=== PATIENT | female | born 1960 | race Caucasian/White ===

== ENCOUNTER 2018-11-21 15:59 | Inpatient (IN) | payer MEDICARE, MEDICAID ==
[~2018-11-21] VITALS: Ht 154.9 cm; Wt 51.2 kg
[~2018-11-21 15:59] MED LIST: ACTICIN 5% CREA60 G1 TOP; ALBUTEROL INHAL17 GM IH; ALBUTEROL2.5 MG/0.1 INH; ALLOPURINOL 10100 M2 PO; AMBIEN 10 MG TA10 MG PO; AMITRIPTYLINE H75 M1 PO; ASPIR 8181 MG PO; ASPIRIN325; BACTRIM DS TAB1 EACH PO; BETASERON; BUSPAR; BUSPIRONE HCL10 MG PO; BUSPIRONE HCL15 MG PO; CELEBREX; CENTANY30 GM TOP; CLONAZEPAM; CYMBALTA30 MG PO; DICLOFENAC SODI75 MG PO; EXCEDRIN CAPLE1 EACH PO; FUTURO RESTORI1 EACH MC; GABAPENTIN 100100 MG PO; GABAPENTIN300 MG PO; IBUPROFEN 600600 M1 PO; INTERFERON; KEFLEX500 MG PO; KLOR-CON 10 ER10 MEQ PO; LASIX 40 MG TAB40 M2 PO; LISINOPRIL10 MG PO; LITHIUM CARBON150 MG; LITHIUM CARBON300 M3 PO; LUNESTA; LUNESTA1 MG PO; MEDROLDOSEPACK PO; MIRAPEX; NEURONTIN 300300 M1 PO; NEURONTIN 300M300 M2 PO; NICOTINE TRANSD21 M1 TRANSDERM; NORCO 5-325 TA1 EACH PO; NORCO 7.5-3251 EACH PO; PREDNISONE 10 M10 M1 PO; PREDNISONE 20 M20 MG PO; PREDNISONE50 MG PO; PROAIR HFA8.5 GM INH; SINGULAIR 10 MG10 M1 PO; SYNTHROID75 MCG PO; ZANTAC 150MG T150 M1 PO; ZANTAC 150MG T150 MG PO; ZOFRAN ODT4 MG PO; ZOLOFT25 MG PO; ZYRTEC 10 MG TA10 MG PO; [UNRECOGNIZED DRUG - REMARK]
[2018-11-21 16:03] VITALS: BP 101/70; BP 163/116
[2018-11-21 16:47] LABS: HEMATOCRIT 29.1 % (37.0-47.0); HEMOGLOBIN 9.9 gm/dL (12.0-15.0); MCH 35.5 pg (26.0-34.0); MCHC 34.2 g/dL (28.0-37.0); MCV 103.8 fL (80.0-100.0); MPV 7.5 fl. (7.2-11.1); NUCLEATED RBCS 0 /100WBC; PLATELET COUNT* 173 thou/uL (150-400); RDW-CV 15.3 % (10.5-14.5); WBC 3.3 thou/uL (4.0-11.0)
[2018-11-21 16:55] LABS: CALCIUM 7.4 mg/dL (8.5-10.1); CREATININE 0.7 mg/dL (0.6-1.3); POTASSIUM 3.3 mmol/L (3.5-5.1)
[2018-11-21 16:57] LABS: APTT 53.2 Seconds (25.0-31.3); INR 1.6; PROTIME 16.6 Seconds (9.20-11.50)
[2018-11-21 17:06] LABS: ALBUMIN 1.1 g/dL (3.4-5.0); TOTAL BILIRUBIN 0.5 mg/dL (<0.1-1.0); TOTAL PROTEIN 4.5 g/dL (6.4-8.2)
[2018-11-21 17:25] LABS: ABSOLUTE LYMPHOCYTES 0.1 thou/uL (0.8-5.3); ABSOLUTE MONOCYTES 0.1 thou/uL (0.0-1.2); ABSOLUTE NEUTROPHILS 3.1 thou/uL (1.6-8.1); PLATELET ESTIMATE ADEQUATE
[2018-11-21 20:25] VITALS: BP 98/67
[2018-11-21 22:30] VITALS: BP 104/78
--- NOTE | 2018-11-22 06:30 | NUR ---
ASSESSMENT: PT ARRIVED TO THE UNIT AT 2034. PT IS ALERT AND ORIENT TIMES THREE, NOT ABLE TO BEAR WT AND IS THEREFORE BEDRIDDEN FOR NOW. PT'S COCCYX AND SACRAL HAS DECUB WOUNDS R/T RADIATION TX THAT WAS LAST DONE IN DECEMBER 2017. PICS ARE IN THE CHART OF HE BUTTOCK WOUNDS AND LEFT HEEL ULCER THAT WAS ODOROUS. PT STATE THAT SHE LIVES ALONE BUT HAS A DAUGHTER IN LAW WHO COMES TO HELP HER AND IS HER HH NURSE. PT IS NOT ABLE TO LIFT ANGELIQUE LE, BUT IS ABLE TO USE HER UE WELL ENOUGH TO FEED HERSELF AND TO REACH FOR THINGS ON HER CART. PT IS ABLE TO USE THE CALL LIGHT APPROPRIATELY. DR. KRISHNAMURTHY GAVE ORDERS TO CONSULT Jenny RANDALL FOR BLOOD CULTURE RESULTS. PT SLEPT WELL DURING THE NIGHT. LEFT CHEST PORTACATH INTACT AND PATENT. WILL CONTINUE TO MONITOR.
[2018-11-22 08:30] VITALS: BP 103/63
--- NOTE | 2018-11-22 10:41 | NUR ---
INITIAL ASSESSMENT: Pt evaluated for d/c planning needs. Reviewed chart and spoke with nurse and pt. Pt is alert and oriented. Pt lives alone in [facility]. Pt's D-I-L is paid caregiver through [facility]. D-I-L is with pt 1.5 or 3 hours per day, Saturday through Saturday. Pt said she is unable to get out of bed. She said when caregiver is not in the house, pt wears Depends and waits until someone comes to clean her up. Pt said she obtained wounds on her sacrum from radiology in December 2017. Pt said she was at [facility] for her radiology and returned home with [facility]. She said HH nurse is still coming to her home and doing wound care. Pt said she saw pictures of the wounds on her sacrum and said it is better than it was when she first returned home. Pt said she was able to walk and toilet herself until about 2 weeks ago. Pt has walker at home. Pt said she is normally on scheduled pain medication at home. Pt said she will need to be able to walk in order to return home. Will remain available to assist as needed and make necessary referrals.
--- NOTE | 2018-11-22 12:44 | EKG ---
[place] [address] ELECTROCARDIOGRAM REPORT Name: ALISONONELIA Room: [address] ADM IN ..#: [id number] Admission: 11/21/18 Attend Phys: Greg Gilbert Discharge: Date of : 62 Report #: [id number] THIS REPORT FOR: //name// [facility] ED Test Date: 2018-11-21 Test Time: 17:19:14 Pat Name: ONELIA ROSAS Department: Room: [facility] Gender: F Retail Associate: Brian DELEON : 1960 Requested By: Anastacio Landaverde Order Number: [id number] MD: Joe Ku Measurements Intervals [place] Rate: 86 P: 65 ME: 120 QRS: -30 QRSD: 104 T: 44 QT: 410 QTc: 491 Interpretive Statements Sinus rhythm artifact noted Left axis deviation Low voltage, precordial leads RSR' in V1 or V2, probably normal variant Borderline prolonged QT interval Compared to ECG 03/20/2017 12:48:13 Sinus tachycardia no longer present Electronically Signed On 11-22-2018 12:44:35 SHADE MATCHER by Joe Ku [email or web address] <ELECTRONICALLY SIGNED> By: Joe Ku MD, FACC 11/22/18 1244 1719 1719 Joe Ku MD, FAC /EPI
--- NOTE | 2018-11-22 16:11 | NUR ---
I ASSUMED CARE OF THE PATIENT AT 0700. SHE IS ALERT AND ORIENTED X4 AND IS BEDFAST. DIET WAS CHANGED TO REGULAR WITH ADDED PROTEIN SUPPLEMENT. HOURLY ROUNDING WAS COMPLETED AND PATIENT NEEDS ARE MET. SHE HAS BEEN TURNED EVERY 2 HOURS. PAIN IS NOT BEING MANAGED, BUT ORDERS ARE BEING OBTAINED. TUBIGRIPS WERE PLACED. HOME MEDS WERE VERIFIED WITH THE PATIENT'S PHARMACY. SHE WAS BLADDER SCANNED EARLY IN THE SHIFT SINCE SHE HAD NOT URINATED ON NIGHTS. HOME MEDS HAVE NOW BEEN RECONCILLED. BED IS IN THE LOW LOCKED POSITION AND CALL LIGHT IS IN REACH. ID WAS HERE TO SEE THE PATIENT AND NEW ORDERS WERE OBTAINED. WOUND CONSULT WAS PLACED. REPORT GIVEN TO ALEXANDRA WHEN I SWITCHED UNITES.
[2018-11-22 16:34] VITALS: BP 111/66
--- NOTE | 2018-11-22 16:46 | NUR ---
ASSUMED PT CARE @ 8511. AGREE WITH COMPLETED ASSESSMENT. PT GIVEN PO MORPHINE 15MG FOR PAIN CONTROL OF WOUNDS BILAT LEGS AND COCCYX AREA. CALL LIGHT WITHIN REACH.
[2018-11-22 20:00] VITALS: BP 105/69
--- NOTE | 2018-11-23 07:00 | NUR ---
Alert and oriented x 4. She is in bed. She has to be turned every 2 hours. She has a wound to L heel and wounds x 4 on sacral/coccyx area and bilat buttocks. Bilat LE's are wrapped with tubigrip stockings which are intact. Dakins solution wet to dry dressings placed on buttocks and sacrum/coccyx. It was soiled so I placed absorbant bordered dressings x 4 to these areas. She has morphine every 4 hours for pain. She has slept intermittenly.
[2018-11-23 07:26] LABS: % SATURATION < 20 % (20-39); IRON 44 ug/dL (50-175)
[2018-11-23 08:10] VITALS: BP 100/70
--- NOTE | 2018-11-23 17:38 | NUR ---
ASSUMED CARE OF PATIENT AT APPROX 0730. ALERT AND OREINTED X4. ASSESSMENT COMPLETED AND CHARTED. VSS ON ROOM AIR. NO COMPLAINTS OF NAUSEA OR SOA. PAIN HAS BEEN MANAGED WITH ORAL MEDICATIONS. WOUNDS EXAMINED, PHOTO DOCUMENTATION TAKEN AND PLACED IN CHART. WOUNDS CLEANED AND DRESSINGS CHANGED TODAY. TUBIGRIPS ON BILATERAL LOWER EXTREMITIES. PATIENT INCONTINENT OF BOWEL AND BLADDER. PATIENT TURNED EVERY 2 HOURS ORDERED. FALL PRECAUTIONS IN PLACE. CALL LIGHT WITHIN REACH AND USES APPROPRIATELY. HOURLY ROUNDS COMPLETED. NURSING WILL CONTINUE TO MONITOR.
[2018-11-23 18:04] VITALS: BP 105/70
--- NOTE | 2018-11-23 18:29 | CON ---
[address] [address] CONSULTATION Name: NIRU GUSTAFSON Room: [address] IN .R.#: [id number] Admission: 11/21/18 Attend Phys: Greg Gilbert Discharge: Date of : 62 Report #: [id number] THIS REPORT FOR: //name// CC: DONA physician/PCP Alexandro Doss DATE OF SERVICE: 11/22/2018 CONSULTATION: Infectious Diseases. HISTORY OF PRESENT ILLNESS:Niru Gustafson is a 58-year-old white female who comes to the hospital by ambulance because of painful swelling in her feet and weakness to the point that she fell and could not get off the floor without assistance. The patient has a number of wounds and erythema of the lower extremities. Infectious Disease, Wound Care consultation was requested. PAST MEDICAL HISTORY: The patient has been diagnosed with cancer of the rectum. This has been treated with radiation therapy and chemo, but not surgery. The patient says that her oncologist feels that the cancer is not in remission and they still are entertaining the possibility of surgical treatment after the presurgical therapies. The patient also has diagnosis of anxiety, depression, obsessive compulsive disorder. She did smoke cigarettes, a pack per day, but quit about 2 months ago. She used to drink to the point of passing out daily, but quit that about 16 months ago. In this setting, the patient is very debilitated, malnourished, weak and comes to the hospital. SOCIAL HISTORY: Shows the patient is and lives by herself. She has home health daily, but is quite debilitated. I believe there have been issues with control of bowels and hygiene as well as nutrition. 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 As noted, she did have tobacco and alcohol use in the past. MEDICATION RECONCILIATION: The patient's current medications include Rocephin 1 g daily, morphine 4 mg x 1. The patient says she was on chronic morphine and this needs to be reinstituted. REVIEW OF SYSTEMS: GENERAL: The patient is not complaining of fevers, chills or sweats. She is complaining of increasing weakness and generalized pain. ENT: The patient denies headache, sinus congestion, sore throat, trouble swallowing. PSYCHIATRIC: She denies cognitive dysfunction, but notes depression and apparently has been suicidal ideation in the past. CARDIOPULMONARY: The patient denies cough, chest pain, shortness of breath. GASTROINTESTINAL: The patient denies nausea, vomiting, diarrhea, constipation. MUSCULOSKELETAL: The patient has a lot of pain from [place] [address] CONSULTATION Name: NIRU GUSTAFSON Room: [address] IN .R.#: [id number] Admission: 11/21/18 Attend Phys: Greg Gilbert Discharge: Date of : 62 Report #: [id number] the wounds on her ischium as well as the pain in her lower extremities. PHYSICAL EXAMINATION: GENERAL: The patient appears much older than her stated age, chronically ill, debilitated, not in any distress. VITAL SIGNS: Show the patient is afebrile since coming to the hospital. Her weight is 107 pounds, down from a normal baseline weight of 128 pounds before she was diagnosed with her cancer. Blood pressure 103/63, pulse 99, respirations 16. DERMATOLOGIC: The skin shows number of abnormalities. It is generally pale and sallow. The patient refused to turn over to allow me to examine her buttocks. The nurses note that she generally refuses to be turned off her back because of pain. However, photographs were obtained. There appears to be deep ischial wounds bilaterally with a lot of shaggy fibrinous debris. From the photos, I would estimate each wound is about 1 x 3 cm. There are some superficial ulcerations and excoriations in the sacral area, probably due to poor fecal hygiene. The legs show redness, warmth and swelling on both shins suggestive of stasis. There is a 3 cm wound on the left heel plantar surface with a lot of shaggy fibrinous debris. There is no erythema around this wound. ENT: Negative. PSYCHIATRIC: Affect is depressed. CARDIOVASCULAR: Heart sounds are normal. LUNGS: Clear to anterior auscultation. The patient would not sit up to allow me to listen to her back. ABDOMEN: The belly is somewhat distended, soft and not tender. LABORATORY STUDIES: White count is 3.3, hemoglobin 9.9, platelets 173,000. The MCV is 104. Electrolytes, BUN and creatinine, glucose are normal. Liver function tests are normal except for elevated alkaline phosphatase at 147. Lactate is normal. Albumin is very low at 1.1. Prealbumin is very low at 5.5. Chest x-ray shows a port. Blood cultures x 3 are negative. IMPRESSION: 1. Wounds due to pressure, radiation, malnutrition and edema. 2. Rectal cancer, partially treated. 3. Possible component of cellulitis. 4. Tobaccoism and alcoholism in remission. PLAN: We will continue Rocephin as has been started. I would like to treat the edema in the legs with elevation and compression if the patient will tolerate that. I would like to treat these shaggy wounds with Santyl ointment and then island foam dressing. I will ask Dietitian to become involved because of nutritional issues. The patient should have Rosas for the wounds as well as protein supplements. The elevated MCV could be a sign of B12, folate deficiency due to poor nutrition, although may just be a function of her alcoholic liver disease. Hypothyroidism would also cause edema and macrocytosis[place] [address] CONSULTATION Name: NIRU GUSTAFSON Room: [address] IN [facility].#: [id number] Admission: 11/21/18 Attend Phys: Greg Gilbert Discharge: Date of : 62 Report #: [id number] this. I would like to obtain records from [facility] to see what kind of treatments and the followup she has had there. For now, we will initiate wound care therapy. If indeed she has nonhealing wounds in area that was radiated heavily for rectal cancer, the patient may benefit from hyperbaric oxygen treatments along with wound care. Clearly offloading nutrition will be the dalton to resolve these wounds. The patient is too weak to be safe at home and probably needs to go to rehab or care facility after leaving the hospital. We may want to offer the patient transferred to [facility] after she stabilized to be with her primary care team there. I appreciate the opportunity to work with you in the care of the patient. I will follow her through the weekend until Dr. Ness returns on Saturday. Thank you for this consultation. <ELECTRONICALLY SIGNED> By: Johny Martinez MD 11/23/18 1829 1241 1816Johny Martinez MD /nt
[2018-11-23 20:30] VITALS: BP 112/75
--- NOTE | 2018-11-24 05:28 | NUR ---
Oriented x 4. She has been having more tolerance for turning, so more pain tolerance. The tubigrip dressings to bilat LE's are intact. She has optifoam dressings to her open areas that were caused by radiation treatments per the patient on her buttocks and sacrum/coccyx. She's been taking morphine every 4 hours. She's able to move her legs slightly this shift. She's been turned every 2 hours. Dressings changed to sacrum/coccyx and bilat buttocks this shift. She has slept well.
[2018-11-24 08:30] VITALS: BP 118/64
--- NOTE | 2018-11-24 10:15 | NUR ---
INFORMED DR. YOU OF TACHYCARDIA. HE WILL PLACE NEW ORDERS IN COMPUTER. PATIENT STATES HEART RATE STARTED BECOMING ELEVATED OVER LAST 5 WEEKS.
--- NOTE | 2018-11-24 13:18 | NUR ---
WOUND NURSE: PATIENT SEEN TO ADDRESS LESIONS ON BUTTOCKS AND SACRUM AND FOOT. PRESENTS WITH FULL THICKNESS WOUNDS ON BILATERAL ISCHIAL TUBEROSITIES, THE RIGHT ISCHIAL WOUND MEASURES 2.5 X 4.0 X 0.3 CM; LEFT ISCHIUM: 2.5 X 1.0 X 0.3 CM; SACRUM: 4.0 X 7.5 X 0.2 CM. PRESENT SHALLOW LESIONS CONTAINING YELLOWISH FIBROTIC TISSUE IN THE WOUND BEDS; MODERATE AMOUNTS OF SEROUSANGUINOUS DRAINAGE; PERIWOUND TISSUE WITH DARKER RED COLOR. WOUNDS ARE PAINFUL PER THE PATIENT. ALL LESIONS WERE CLEANSED WITH SOAP AND WATER, RINSED WITH WATER, THEN PATTED DRY. APPLIED AQUACEL AG TO EACH WOUND OPENING; THEN COVERED IN EXUDERM LP AND SECURED IN PLACE WITH SURESITE TRANSPARENT DRESSING. PLANTAR SURFACE OF LEFT HEEL WOUND PRESENTS A SHALLOW LESION WITH DARK RED NONGRANULATING TISSUE IN THE BED. THERE IS A SMALL AMOUNT OF SANGUINOUS DRAINAGE NOTED. CLEANSED WITH SOAP AND WATER, RINSED WITH WATER, THEN PATTED DRY. APPLIED AQUACEL AG UNDER BORDERED FOAM DRESSING. SINGLE LAYER SIZE E TUBIGRIPS TO BLE TOES TO KNEE FOR EDEMA CONTROL -- ALREADY WEARING THIS. PATIENT REFUSING TO OFFLOAD WOUNDS BY BEING REPOSITIONED ON HER SIDE, AND STATING THAT DOCTORS HAVE ALREADY DISCUSSED THIS WITH HER AND SHE CAN'T TOLERATE LAYING ON HER SIDES. PLAN TO REINFORCE THE IMPORTANCE OF OFFLOADING WOUNDS TO PROMOTE HEALING.
[2018-11-24 15:54] VITALS: BP 94/69
--- NOTE | 2018-11-24 16:05 | NUR ---
MET WITH PT. SHE WAS ALERT AND ORIENTED. SHE SAID SON WAS IN THE PROCESS OF BUYING A HOUSE AND SHE WOULD BE MOVING IN WITH HIM AND HIS . THEN SOMEONE WOULD BE WITH HER ALL THE TIME. SHE DID NOT KNOW WHEN THIS WOULD OCCUR. DISCUSSED GOING TO A [facility] FACILITY TO RECEIVE MORE THERAPIES AND WOUND CARE, WHENEVER SHE WAS STABLE FOR DISCHARGE. SHE SEEMED AGREEABLE. GAVE HER A LIST OF NURSING FACILITIES IN THE AREA. SHE SAID SHE WOULD LOOK AT IT AND TALK TO HER SON THIS EVENING. DR'S RECOMMENDING POSSIBLE HBO. WILL INQUIRE WITH SNF WHEN REFERRAL MADE, IF THIS WOULD BE A POSSIBILITY OR IF PT.WOULD NEED TO PURSUE AFTER SKILLED TIME OVER. CORRECTION TO PREVIOUS CM NOTE:PT. IS [facility].
--- NOTE | 2018-11-24 16:15 | NUR ---
PATIENT REMAINS ALERT AND ORIENTED X3. FORGETFUL/CONFUSED AT TIMES. REQUESTS MORPHINE FREQUENTLY DUE TO PAIN ON BUTTOCKS FROM SORES. PATIENT REFUSES TO HAVE WEDGES PLACED UNDERNEATH HER ENOUGH TO OFFLOAD. HEELS ELEVATED ON PILLOWS. DRESSINGS ON BUTTOCKS/LEFT HEEL CHANGED TODAY BY WOUND CARE. NEW TUBIGRIPS PLACED ON BLE . 2 BOWEL MOVEMENTS THIS SHIFT. INCONTINENT OF URINE. PATIENT ALSO REFUSED OT/PT. ENCOURAGED PATIENT TO GET OUT OF BED, SHE SIMPLY STATES SHE CANT. EDUCATION GIVEN. LEFT CHEST PORT FREE OF REDNESS,DRAINAGE,OR EDEMA. FLUSHES FREELY. TOLERATING MEALS AND SUPPLEMENT. METOPROLOL STARTED TODAY FOR TACHYCARDIA. BED ALARM SET. CALL LIGHT WITHIN REACH. WILL CONTINUE TO MONITOR.
--- NOTE | 2018-11-24 18:27 | NUR ---
NICOTINE PATCH REMOVED PATIENT WAS HALLUCINATING. WILL CONTINUE TO MONITOR.
[2018-11-24 20:00] VITALS: BP 93/66
--- NOTE | 2018-11-25 04:56 | NUR ---
PT WAS A&Ox3 DURING SHIFT. VITALS STABLE. PAIN CONTROLLED WITH MORPHINE. PICC IN L CHEST PATENT, SL. DRESSINGS REMAIN CLEAN DRY AND INTACT. Q2H TURNS COMPLETE. FALL PRECAUTIONS IN PLACE. HOURLY ROUNDINGS COMPLETE. WILL CONTINUE TO MONITOR.
[2018-11-25 09:00] VITALS: BP 108/64
--- NOTE | 2018-11-25 09:10 | NUR ---
REHAB CONSULT RECEIVED AND ACKNOWLEDGED BY DR RUEDA AND DRYWALL APPLICATOR. CURRENTLY UNSURE THAT PT WOULD BE ABLE TO TOLERATE 3 HOURS OF THERAPY, REQUIRED ON REHAB UNIT, DUE TO PAIN, LIMITED TOLERANCE OF CURRENT P.T. AND OT WILL CONTINUE TO FOLLOW PT THROUGH CARE. THANK YOU
--- NOTE | 2018-11-25 10:17 | NUR ---
DRESSINGS TO ISCHIAL WOUNDS AND LEFT HEEL CHANGED WITH DR. MOONEY PRESENT THIS AM. PATIENT TOLERATED WELL.
--- NOTE | 2018-11-25 13:51 | NUR ---
SPOKE WITH SON AND MIKA/DEANNA RASCON ON PHONE. HE SAID HIS MOM HAD BEEN ON A WAITING LIST FOR A LTC BED AT [facility] [place]. HE SAID THEY CALLED HIM A COUPLE OF DAYS AGO AND THEY HAVE A BED AVAILABLE FOR HER. VM LEFT FOR [facility]/ADMISSIONS AT [facility]. FAXED REFERRAL TO HER.
[2018-11-25 15:49] VITALS: BP 120/74
--- NOTE | 2018-11-25 15:59 | NUR ---
PATIENT REMAINS ALERT AND ORIENTED X 2-3. FORGETFUL AT TIMES. THINKS SHE IS AT HOME AND ASKS FOR US TO GATHER THINGS FROM HER KITCHEN AND BEDROOM A LOT. SPEECH EVAL TODAY. BM X2- INCONTINENT. INCONTINENT OF URINE SEVERAL TIMES BUT HAS ALSO ASKED TO USE BSC. UP TO CHAIR TODAY. TOLERATED WELL. UP WITH ASSIST OF 1,GB, AND WALKER. MORPHINE PRN FOR PAIN. DRESSINGS TO ISCHIAL TUBEROSITITES CHANGED WELL LEFT HEEL DRESSING. REPOSITIONED EVERY [address] MOONEY CHANGED IV TO PO ABX. HEELS ELEVATED. BILAT TUBIGRIPS REMOVED FOR SKIN CARE AND REPLACED. VSS. SAT 97%. LEFT CHEST PORT FREE OF REDNESS,DRAINAGE, OR EDEMA. FLUSHES FREELY. CM WORKING ON SNF PLACEMENT AT [facility] PATIENT IS CURRENTLY ON WAITING LIST FOR LTC THERE. BED ALARM SET. CALL LIGHT WITHIN REACH. WILL CONTINUE TO MONITOR.
[2018-11-25 21:30] VITALS: BP 101/56
--- NOTE | 2018-11-26 07:45 | NUR ---
PATIENT HAS SLEPT OFF AND ON DURING THE NIGHT, BUT RESTLESS AT TIMES. PATIENT IS COMPULSIVE AT TIMES AND DOES NOT USE CALL LIGHT APPROPRIATELY. PATIENT IS INCONTINENT OF BOWEL AND BLADDER. WOUND DRESSING WAS PARTIALLY SATURATED AND WOUND WAS CLEANSED AND DRESSING CHANGE WAS DONE X 2 DURING SHIFT. PATIENT TURNED EVERY 2HRS AND PRN. LEFT CHEST PORT-SL. VSS ON RA. PAIN MEDICATIONS GIVEN ORDERED AND CHARTED. FALL PRECAUTIONS IN PLACE AND HOURLY ROUNDS MADE. WILL CONTINUE WITH PLAN OF CARE AND NURSING TO MONITOR.
[2018-11-26 08:00] VITALS: BP 141/103
--- NOTE | 2018-11-26 10:13 | NUR ---
SPOKE WITH REINALDO. SHE RECEIVED MY FAX FROM YESTERDAY ON PT. SHE HAS REVIEWED AND HAS SENT IT ON TO HER ASSOC.D.O.N. TO SEE IF THEY CAN MEEDT PT.'S NEEDS FOR SNF AND LTC. SHE WILL CALL ME AFTER A.D.O.N.REVIEWS.
[2018-11-26 15:28] VITALS: BP 138/87
--- NOTE | 2018-11-26 18:05 | NUR ---
ASSUMED CARE OF PATIENT AT APPROX 0730. ALERT AND ORIENTED X2-3. ASSESSMENT COPLETED AND CHARTED. VSS ON ROOM AIR. PATIWNT IS VRY CONFUSED AND HAVING HALLUCINATIONS. PATIENTS SON CALLED THIS AFETERNOON AND STATED THAT THE PATIENT HAD CALLED HIM VERY CONFUSED AND THAT THIS IS WHAT HAPPENS TO THE PATIENT WHEN SHE HAS HAD MORPHINE. PHYSICIAN NOTIFIED OF THIS AND PAIN MEDICATION ORDERS CHANGED. DRESSING CHANGED TODAY AFTER NUMEROUS INCONTINENT BOWEL MOVEMENTS. NO OTHER PATIENT COMPLAINTS AT THIS TIME. FALL PRECAUTIONS IN PLACE. CALL LIGHT WITHIN REACH, HOURLY ROUNDS COMPLETED, NURSING WILL CONTINUE TO MONITOR.
[2018-11-26 23:00] VITALS: BP 120/68
--- NOTE | 2018-11-27 09:02 | NUR ---
PATIENT HAS SLEPT WELL THROUGHOUT THE NIGHT. VSS ON RA. PAIN WELL CONTROLLED. PATIENT REPOSITONED EVERY 2 HRS. CORRIE CARE PERFORMED AND WOUND DRESSINGS CHANGED. PATIENT HAS BEEN INCONTINENT OF BOWEL AND BLADDER. LEFT CHEST PORT-SL. FALL PRECAUTIONS IN PLACE AND HOURLY ROUNDS MADE. WILL CONTINUE WITH PLAN OF CARE AND NURSING TO MONITOR.
--- NOTE | 2018-11-27 11:28 | NUR ---
LEAD SHIPPER SPOKE TO THE PATIENT'S SON DEANNA TO INFORM THAT VIRA HAD DECIDED TO DECLINE ACCEPTANCE OF HIS MOTHER TO [facility] AT THIS TIME. DEANNA INFORMS THAT HE WAS UPSET, AND PLANNED TO 'SPEAK WITH [facility] TO DISCUSS'. D/C INSTRUCTOR TRAINER CANINE SERVICE INFORMED THAT IN THE MEAN TIME WE WILL NEED TO SEEK PLACEMENT AT ANOTHER FACILITY. DEANNA REQUESTED THAT A REFERRAL BE SENT TO [facility]. D/C INSTRUCTOR TRAINER CANINE SERVICE SPOKE TO [facility] WITH [facility] TO INFORM OF THE REFERRAL AND FAXED THE PATIENT'S FACESHEET, AND CLINICAL INFO. D/C INSTRUCTOR TRAINER CANINE SERVICE AWAITING RETURN CALL TO DISCUSS ABILITY TO ACCEPT THE PATIENT AT D/C. CM WILL REMAIN AVAILABLE TO ASSIST AND FOLLOW NEEDED.
--- NOTE | 2018-11-27 17:35 | NUR ---
CONTINUING TO FOLLOW PATIENT ALONG WITH DR. RUEDA. PLAN IS FOR PATIENT TO TRANSITION TO LTC AFTER REHAB THEREFORE PATIENT DOES NOT QUALIFY FOR ACUTE REHAB. PER CM PLAN IS FOR PATIENT TO GO SKILLED AT DISCHARGE AND THEN LTC.
--- NOTE | 2018-11-27 18:08 | NUR ---
ASSUMED CARE OF PATIENT AT APPROX 0730. ALERT AND TO PERSON AND TIME. VERY CONFUSED AND HAVING HALLUCINATIONS SEEING PEOPLE IN THE ROOM WHO ARENT THERE. ASSESSMENT COMPLETED AND CHARTED. VSS ON ROOM AIR. NO COMPLAINTS OF PAIN, NAUSEA, OR SOA THIS SHIFT. PATIENT STILL HAVING MULTIPLE INCONTINENT BOWEL MOVEMENTS TODAY. DRESSINGS CHANGED BUT SOILED BY STOOL. PATIENT UP TO CHAIR TODAY AND WORKED WITH THERAPIES. FALL PRECAUTIONS IN PLACE. CALL LIGHT WITHIN REACH, NURSING WILL CONTINUE TO MONITOR.
[2018-11-27 18:37] VITALS: BP 90/61
[2018-11-27 21:15] VITALS: BP 95/55
--- NOTE | 2018-11-27 23:28 | NUR ---
INTIAL ASSESMENT COMPLETED AT 2114. PT'S DRESSINGS CHANGED ON COCCYX AND BILATERAL BUTTOX.
--- NOTE | 2018-11-28 05:08 | NUR ---
PT CONTINUES TO BE INCONTINENT OF STOOL. PT TURNED Q 2 HRS TO PROMOTE HEALING FOR ULCERATED AREAS ON BUTTOX. CORRIE CARE AND BARRIER CREAM APPLIED Q 2 HRS WHEN TURNED. NO ACUTE CHANGES, WILL CONTINUE PLAN OF CARE.
[2018-11-28 11:20] VITALS: BP 105/61
[2018-11-28 13:40] LABS: ABSOLUTE EOSINOPHILS 0.1 thou/uL (0.0-0.7); ABSOLUTE LYMPHOCYTES 0.6 thou/uL (0.8-5.3); ABSOLUTE MONOCYTES 0.2 thou/uL (0.0-1.2); ABSOLUTE NEUTROPHILS 3.8 thou/uL (1.6-8.1); BASOPHILS 0.7 %; EOSINOPHILS 1.5 %; HEMATOCRIT 26.9 % (37.0-47.0); LYMPHOCYTES 12.2 %; MCH 35.1 pg (26.0-34.0); MCHC 33.3 g/dL (28.0-37.0); MCV 105.4 fL (80.0-100.0); MONOCYTES 4.5 %; NUCLEATED RBCS 0 /100WBC; PLATELET COUNT* 195 thou/uL (150-400); POLYS 81.1 %; RBC 2.55 mil/uL (4.20-5.00); RDW-CV 14.8 % (10.5-14.5); WBC 4.7 thou/uL (4.0-11.0)
[2018-11-28 13:53] LABS: ALBUMIN 1.2 g/dL (3.4-5.0); CALCIUM 7.6 mg/dL (8.5-10.1); CREATININE 0.7 mg/dL (0.6-1.3); POTASSIUM 4.3 mmol/L (3.5-5.1); TOTAL BILIRUBIN 0.1 mg/dL (<0.1-1.0); TOTAL PROTEIN 4.8 g/dL (6.4-8.2)
--- NOTE | 2018-11-28 14:30 | NUR ---
D/C ELECTRIC RANGE PREPARER SPOKE TO THE PATIENT AND HER SON TO DISCUSS DISCHARGE PLANNING NEEDS. D/C ELECTRIC RANGE PREPARER OFFERED AN ADDITIONAL LIST OF SNF OPTIONS ALL PREVIOUS REFERRALS HAD DECLINED PATIENT. D/C ELECTRIC RANGE PREPARER SENT REFERRALS TO [facility], AND [facility]. D/C ELECTRIC RANGE PREPARER SPOKE TO KARLA WITH ADMISSIONS AT [facility] AND SHE INFORMS THAT THE FACILITY IS ABLE TO ACCEPT THE PATIENT AT [facility] FOR SKILLED WITH THE POSSIBILITY OF NEEDING LTC. RN IN-CHARGE OF PATIENT INFORMS THAT PATIENT WOULD D/C TOMORROW PENDING C-DIFF CULTURE RESULTS. D/C ELECTRIC RANGE PREPARER INFORMED THE PATIENT AND SON OF THIS INFO AND BOTH ARE IN AGREEMENT. CM WILL REMAIN AVAILABLE TO ASSIST AND FOLLOW NEEDED. CONTACT [facility] AT [facility] TO CALL REPORT, AND PATIENT WILL NEED TO TRANSPORT BY [facility]. [facility] PHONE: [phone] FAX: [phone]
[2018-11-28 17:00] VITALS: BP 85/51
--- NOTE | 2018-11-28 18:45 | NUR ---
PATIENT REMAINED ALERT AND ORIENTED X'S 4. VITAL SIGNS AND SPO2 STABLE. IV PORTACATH FLUSHING. PAIN WELL CONTROLLED WITH PAIN MEDS. RECTAL TUBE PLACED FOR INCONTINANCE OF BOWEL, GETTING STOOL IN WOUNDS. C-DIFF SAMPLE SENT TO LAB THIS MORNING. PATIENT CAN DC IF SAMPLE COMES BACK NEGITIVE PER DR. HEBERT. TRANSFERS SLOWLY. PASSED BM AND VOIDED WITHOUT ISSUE. TOLERATED DIET, NO NAUSEA AND VOMITING. COMPLETED HOURLY ROUNDING. CALL LIGHT WITHIN REACH, WILL CONTINUE TO MONITOR.
[2018-11-28 21:00] VITALS: BP 72/48
[2018-11-29] VITALS (7 sets, daily range): BP systolic 82–98; BP diastolic 50–62
--- NOTE | 2018-11-29 05:31 | NUR ---
PT SLEPT ON AND OFF THIS SHIFT. ASSESSMENT DOCUMENTED. MEDS GIVEN PER E-DEC. PORT PATENT. PT HAD LOW BP AT BEGINING OF SHIFT BUT WAS REQUESTING PAIN MEDICATIONS. DR NOTIFIED, DR GUERRAED TO GIVE 1 TAB OF HYDROCODONE WITH A 500ML NS BOLUS, GIVEN PER E-DEC. BP RECHECKED FREQUENTLY PER DR REQUEST. PT REPOSTIONED THORUGH NIGHT. FECAL MANAGEMENT SYSTEM IN PLACE WITH MINIMAL DRAINAGE, FORMED STOOL LEAKING AROUND SYSTEM. PT INCONTINENT OF URINE. WILL CONTINUE WITH PLAN OF CARE.
--- NOTE | 2018-11-29 15:24 | NUR ---
Following for d/c planning needs. Spoke with physician and pt is not medically ready for d/c today. Received telephone call from event coordinator marketing and sales at [facility], and told her pt may be able to transfer on Saturday if medically stable. Pt has been accepted to facility.
--- NOTE | 2018-11-29 18:00 | NUR ---
PATIENT ALERT AND ORIENTED X 4. VITAL SIGNS STABLE ON ROOM AIR. AFEBRILE. LEFT CHEST PORT PATENT WITH FLUIDS INFUSING. INCONTINENT OF BOWEL AND BLADDER. FECAL MANAGEMENT SYSTEM REMOVED, PER DR. [place]'S ORDERS. MEDICATIONS GIVEN PER EMAR. PAIN BEING MANAGED WITH PO MEDICATION. DENIES NAUSEA. FALL PRECAUTIONS IN PLACE AND BED ALARM. HEELS OFFLOADED. HOURLY ROUNDS MAINTAINED THROUGHOUT THE SHIFT. CALL LIGHT WITHIN REACH. NURSING WILL CONTINUE TO MONITOR.
[2018-11-30 04:14] VITALS: BP 90/61
--- NOTE | 2018-11-30 04:17 | NUR ---
PT REMAINED ALERT AND ORIENTED AND WAS FORGETFUL AT TIMES. PT DRESSING CHANGED TO [employer] MULTIPLE TIMES DURING NIGHT WITH TURNING AND CLEANING PT OF STOOL AND URINE. Q2 TURNS COMPLETED. TUBIGRIPS TO LEGS BILAT IN PLACE. BLOOD DRAWN FROM PORT FOR LABS. HEEL OFFLOADED WITH PILLOWS. FALL RISK PRECAUTIONS IN PLACE. HOURLY ROUNDING COMPLETED. WILL CONTINUE TO MONITOR.
[2018-11-30 04:48] LABS: HEMATOCRIT 24.9 % (37.0-47.0); HEMOGLOBIN 8.3 gm/dL (12.0-15.0); MCH 35.5 pg (26.0-34.0); MCHC 33.5 g/dL (28.0-37.0); MCV 105.9 fL (80.0-100.0); MPV 7.3 fl. (7.2-11.1); RBC 2.35 mil/uL (4.20-5.00); RDW-CV 14.9 % (10.5-14.5); WBC 5.7 thou/uL (4.0-11.0)
[2018-11-30 05:10] LABS: CALCIUM 7.1 mg/dL (8.5-10.1); CREATININE 0.4 mg/dL (0.6-1.3); MAGNESIUM 1.4 mg/dL (1.8-2.4); POTASSIUM 3.7 mmol/L (3.5-5.1)
[2018-11-30 08:00] VITALS: BP 100/67
[2018-11-30 10:32] VITALS: BP 100/67
[2018-11-30 12:47] VITALS: BP 100/67
[2018-11-30] MEDS ORDERED: SEROQUEL 25 MG25 M1 PO (13:25)
--- NOTE | 2018-11-30 15:14 | NUR ---
PATIENT DISCHARGED FROM UNIT AT 1410 WITH EMS VIA AMBULANCE. ALERT AND ORIENTED X 4. VITAL SIGNS STABLE ON ROOM AIR. AFEBRILE. CHEST PORT FLUSHED WITH HEPARIN AND DEACCESSED. DENIES NAUSEA. PAIN CONTROLLED WITH PO MEDICATION. PACKET WITH DISCHARGE INSTRUCTIONS AND MEDICATION INFORMATION GIVEN TO EMS. PATIENT LEFT WITH ALL BELONGINGS.
[2018-11-30 15:16] VITALS: BP 100/67
== END 2018-11-30 14:10 | DRG 871 ==
LOC: M.ERS 15:59 → M.ORTHSURG 17:35 → M.TBA-ER 17:35 → M.ORTHSURG 20:35
PROVIDERS: Family Medicine; Internal Medicine Infectious Disease; Nurse Practitioner Family; Specialist; ADMIT Internal Medicine
DX: A41.81 Sepsis due to Enterococcus (principal); E43 Unspecified severe protein-calorie malnutrition; L03.115 Cellulitis of right lower limb; L02.612 Cutaneous abscess of left foot; C20 Malignant neoplasm of rectum; D61.9 Aplastic anemia, unspecified; F32.9 Major depressive disorder, single episode, unspecified; E88.09 Other disorders of plasma-protein metabolism, not elsewhere classified; F41.9 Anxiety disorder, unspecified; F10.20 Alcohol dependence, uncomplicated; L89.322 Pressure ulcer of left buttock, stage 2; L89.312 Pressure ulcer of right buttock, stage 2; L89.620 Pressure ulcer of left heel, unstageable; I05.0 Rheumatic mitral stenosis; E53.8 Deficiency of other specified B group vitamins; T66.XXXA Radiation sickness, unspecified, initial encounter; Z88.8 Allergy status to other drugs, medicaments and biological substances; Z68.21 Body mass index [BMI] 21.0-21.9, adult; Z87.891 Personal history of nicotine dependence; Z88.6 Allergy status to analgesic agent